=== PATIENT | male | born 1985 | race Caucasian/White ===

== ENCOUNTER 2023-10-02 16:15 | Outpatient (CLI) | payer OTHER, SELFPAY | END 2023-10-02 16:16 | disposition home or self-care (01) | LOC: AMB 10-03 17:57 | PROVIDERS: PCP Internal Medicine; Visit Provider Family Medicine | DX: S61.210A Laceration without foreign body of right index finger without damage to nail, initial encounter (principal); V49.3XXA Car occupant (driver) (passenger) injured in unspecified nontraffic accident, initial encounter; Y92.410 Unspecified street and highway as the place of occurrence of the external cause | CPT/HCPCS: A0425; A0429 ==

== ENCOUNTER 2023-10-02 16:36 | Emergency (ER) | payer OTHER, SELFPAY ==
[2023-10-02] VITALS (20 sets, daily range): BP systolic 110–140; BP diastolic 76–98; PULSE 56–83; RESP 16–18; TEMP 36.5; O2SAT 94–98; BMI 23.0
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
[2023-10-02] MEDS: TETANUS/DIPHTH/PERTUSSIS 0.5 ML SYRINGE IM (17:36)
== END 2023-10-02 18:26 | disposition home or self-care (01) ==
PROVIDERS: Emergency Provider Family Medicine; PCP Internal Medicine
DX: S60.410A Abrasion of right index finger, initial encounter (principal); V49.3XXA Car occupant (driver) (passenger) injured in unspecified nontraffic accident, initial encounter
CPT/HCPCS: 71045; 73110; 76604; 76705; 90471; 90715; 93308; 94761; 99284; 99291; G0390

== ENCOUNTER 2024-12-16 09:13 | Emergency (ER) | payer MEDICAID, SELFPAY ==
[2024-12-16 09:18] VITALS: BP 143/89; PULSE 84; RESP 20; TEMP 35.9; O2SAT 97; BMI 19.4
--- OUTSIDE RECORDS SUMMARY | 2024-12-16 09:18 | XMS_ITS | Clinical Summary ---
Author Organization [facility] Address [address] [place] [id number] Care Team Providers Care Overlock Elastic Attacher Name Role Phone Eyal Mills MD Primary Care Provider Allergies No known active allergies Medications OMEGA-3 FATTY ACIDS 1,000 MG CAP 0 10/28/2008 Active calcium-cholecal ciferol, vitamin D, 500 mg-200 units (OS-YAIMA 500 + D) 500 mg(1,250mg) -200 unit tablet Take 1 tablet by mouth 2 times daily with meals. 0 10/18/2009 Active multivitamin (MVI) tablet Take 1 tablet by mouth once daily. 0 10/18/2009 Active cyanocobalamin (VITAMIN B12) 100 mcg tablet Take 1 tablet by mouth once daily. 0 10/18/2009 Active Active Problems Problem Noted Date Diagnosed Date Bipolar I disorder, most rec ent episode (or current) manic, severe, without mention of psychotic behavior 09/29/2009 Marijuana abuse 09/29/2009 Bipolar affective 09/19/2009 ADD (attention deficit disorder with hyperactivi ty) 09/19/2009 Overview (07/06/2013): a system change updated this record. This will not affect patient care or billing. This comment can be deleted. Cannabis abuse, unspecified 09/19/2009 Hallucinogen abuse, unspecified 09/19/2009 Abrasions 09/19/2009 Bipolar I disorder, most rec ent episode (or current) manic, severe, specified as with psychotic behavior 09/19/2009 Family History Medical History Relation Name Comments Good Health Father Good Health Mother Relation Name Status Comments Father Mother Social History Tobacco Use Types Packs/Day Years Used Date Smoking Tobacco: Never Smokeless Tobacco: Never Tobacco Cessation:Counseling Given: Not Answered Alcohol Use Standard Drinks/Week Comments Yes 0 (1 standard drink = 0.6 oz pure alcohol) several beer occasionally, to point of getting drunk Sex and Gender Information Value Date Recorded Sex Assigned at Not on file Legal Sex Male 5:42 AM [employer] Gender Identity Not on file Sexual Orientation Not on file Obstetrics History Last Filed Vital Signs Vital Sign Reading Time Taken Comments Blood Pressure 121/71 12/21/2022 1:11 PM CDT Pulse 62 12/21/2022 1:11 PM CDT Temperature 37.1 C (98.7 F) 12/21/2022 1:11 PM CDT Respiratory Rate 14 12/21/2022 1:11 PM CDT Oxygen Saturation 97% 12/21/2022 1:11 PM CDT Inhaled Oxygen Concentration - - Weight 73.5 kg (162 lb) 12/21/2022 1:11 PM CDT Height 172.7 cm (5' 8) 10/11/2009 5:00 AM CDT Body Mass Index - - Plan of Treatment Health Maintenance Due Date Last Done Comments Tetanus booster 1997 Depression screening for age 12+ 1998 BMI (ht and wt on same day) for age 18+ 2004 Hepatitis C screening for ag e 18-79 2004 Hepatitis B series for 19+ ( 1 of 3 - 19+ 3-dose series) 2005 Lipids for age 35-44 2021 COVID-19 vaccine series ( season) 2023 Influenza Vaccine (#1) 2024 HIV for age 15-65 Completed 10/08/2009 Pneumococcal series for age 6-49 Aged Out No longer eligible based on patient's age to complete this topic Procedures Procedure Name Priority Date/Time Associated Diagnosis Comments ANTI HIV 1/2 Early AM 10/08/2009 6:00 AM CDT from Last 3 Months or Most Recently Relevant to Health Maintenance Results * ANTI HIV 1/2 (10/08/2009 6:00 AM CDT) ANTI HIV 1/2 Non-reacti ve [facility] Blood specimen (specimen) BLOOD SPECIMEN / Unknown 10/08/2009 6:00 AM CDT 10/07/2009 10:01 PM CDT Samuel Roland MD SEND OUTS Final Result [facility] [place]NAL ZIP [id number] [address] from Last 3 Months or Most Recently Relevant to Health Maintenance Insurance [facility] Advance Directives * Full Code (Latest Code Status on File) Date Activated Date Inactivated Comments 09/29/2009 12:54 AM 10/18/2009 4:10 PM * Full Code Date Activated Date Inactivated Comments 09/18/2009 2:58 PM 09/22/2009 10:32 PM Care Teams Overlock Elastic Attacher Relationship Specialty Start Date End Date Eyal Mills MD PCP - General 09/13/09
--- NOTE | 2024-12-16 09:30 | ED_ITS ---
HPI - Nausea/Vomiting/Diarrhea General Time Seen by Provider: 09:30 Date Seen: 12/16/24 Chief complaint: Nausea/Vomiting Stated complaint: can't keep anything down. Time Seen by Provider: 12/16/24 09:29 Source: patient and RN notes reviewed Mode of arrival: ambulatory Limitations: no limitations History of Present Illness HPI Narrative: This 38-year-old male is coming in accompanied by his mom with concern of nausea vomiting. He does have a history of cannabis dependence, alcohol dependence and pancreatitis. He admits that he drank half a bottle of Jagermeister Friday night, nausea vomiting started Friday night. He is not really having much for abdominal pain, no nausea or vomiting. He states he has been trying to get fluids down but just is not really able to. He starting to feel dizzy this morning, weak and fatigued. He just had a very small amount of urine production this morning, diminished urine output. He is abstain from cannabis use the last few days. He smokes marijuana. He does endorse some regurgitant symptoms or feel some burning. Difficult to say as he has been having vomiting. When his mom left the room, she did told nursing staff that he showers about 4 times a day, she does wonder if this is his cannabis use. He cannot really say that this feels like pancreatitis to him, his not having abdominal pain right now. Symptoms have been more nausea and vomiting. MD elicited complaint: nausea and vomiting Related Data Previous Rx's ?Medication ?Instructions ?Recorded ondansetron 4 mg disintegrating 4 mg PO Q6H PRN nausea and 12/16/24 tablet vomiting #30 tabs Allergies Allergy/AdvReac Type Severity Reaction Status Date / Time No Known Drug Allergies Allergy Verified 10/02/23 16:40 Review of Systems Status of ROS: Reports: 6 or more systems reviewed and unremarkable except as noted in History and below [facility] Medical History Back injury ?S39.92XA - Unspecified injury of lower back, initial encounter (ICD-10) History of cannabis dependence/abuse ?F12.21 - Cannabis dependence, in remission (ICD-10) History of pancreatitis (2013) ?Z87.19 - Personal history of other diseases of the digestive system (ICD-10) History of alcohol dependence ?F10.21 - Alcohol dependence, in remission (ICD-10) Mixed personality disorder ?F60.89 - Other specific personality disorders (ICD-10) Bipolar disorder ?F31.9 - Bipolar disorder, unspecified (ICD-10) ADHD (attention deficit hyperactivity disorder) ?F90.9 - Attention-deficit hyperactivity disorder, unspecified type (ICD-10) History of hepatitis C ?Z86.19 - Personal history of other infectious and parasitic diseases (ICD- 10) Family History Uncle Alcohol dependence Social History What is your current living situation?: I presently have a place to live Problems where you live: no known problems In the past 12 months, utilities in danger of being shut off: no In past 12 months, lack of transportation kept you from medical appts, meetings, work, or getting things needed for daily living: no In the past 12 mos, have been you worried that your food would run out before you had money to buy more?: never true In the past 12 mos, the food you bought just didn't last and you didn't have mo [place] to buy more?: never true Smoking Status: Never smoker How often do you have a drink containing alcohol: 4 or more times a week How many standard drinks containing alcohol do you have on a typical day: 3 or 4 How often do you have six or more drinks on one occasion: Weekly AUDIT-C Alcohol total score: 8 Non-prescribed substance use: former substance user and marijuana (any form) How often does anyone, including family, friends and others, physically hurt you : never How often does anyone, including family, friends and others, insult or talk down to you: rarely How often does anyone, including family, friends and others, threaten you with harm: never How often does anyone, including family, friends and others, scream or curse at you: never Health Related Social Needs: Other personal risk factors, not elsewhere classified (Z91.89) Exam Const: Vital Signs, click to edit/add: Vital Signs - 24 hr 12/16/24 09:18 12/16/24 11:32 Temperature 96.7 F L Pulse Rate [Pulse Oximeter] 84 61 Respiratory Rate 20 16 Blood Pressure [Ri ght Upper Arm] 143/89 H 123/85 Pulse Oximetry 97 97 Oxygen Delivery Me thod Room Air Room Air Brett is a very pleasant 38-year-old male hanging onto an emesis bag, he is lying in the bed in exam room 2. He is alert, interactive, no apparent distress, very pleasant. Sclera clear, conjugate gaze. Symmetrical facial f unction. Lips are not dry are cracked, speech is normal. Neck is slender, no jugular venous distension, no adenopathy or thyromegaly masses or nodules. Lungs are clear, good air entry, no wheezing or crackles, no tachypnea, no accessory muscle use. CV regular rate and rhythm, no murmur, normal S1-S2, no S3-S4. Abdomen is slender, normal bowel sounds, no distension, no organomegaly or masses, nontender, no rebound or guarding. Patient did ambulate into the ED of his own accord. Documenting provider has reviewed patient's vital signs: yes Course Course ED Course: Have reviewed the possibility of patient having cyclical vomiting due to the THC from marijuana use. He wonders if cutting down may make it safer. Reviewed with him that we will look at other etiologies, look at labs including lipase and full chemistries. He is nontender on his abdominal exam at this point, do not feel he needs imaging. Is possible with his alcohol use a could be something like gastritis or developing ulcer disease. Will give him a dose of IV Protonix, a L of fluids and 4 mg IV Zofran. Consider imaging if labs are abnormal/concerning for things such as pancreatitis. Reevaluation(s) Time of Reevaluation #1: 12:40 Reevaluation #1: Patient has completed 2 L of IVF and still no urge to urinate. Will order another L of LR. Time of Reevaluation #2: 14:04 Reevaluation #2: Patient finally urinated. He states he still felt dizzy on initially standing. He has had 3 L of fluid. His nausea is better. He is going to try drinking some clear liquids while we await the urinalysis. We did discuss that his labs show dehydration certainly. I do suspect cyclical vomiting syndrome. Liver enzymes likely elevated due to alcohol use, abdominal examination today is benign, do not think he needs any further workup. Vital Signs Vital signs: Initial Vital Signs Temperature 96.7 F L 12/16/24 09:18 Temperature Source Temporal Artery Scan 12/16/24 09:18 Pulse Rate 84 12/16/24 09:18 Respiratory Rate 20 12/16/24 09:18 Blood Pressure 143/89 H 12/16/24 09:18 Blood Pressure Mean 107 H 12/16/24 09:18 Blood Pressure Position Sitting 12/16/24 09:18 Pulse Oximetry 97 12/16/24 09:18 Oxygen Delivery Method Room Air 12/16/24 09:18 Vital Signs Temperature 96.7 F L 12/16/24 09:18 Pulse Rate 84 12/16/24 09:18 Respiratory Rate 20 12/16/24 09:18 Blood Pressure 143/89 H 12/16/24 09:18 Pulse Oximetry 97 12/16/24 09:18 Oxygen Delivery Method Room Air 12/16/24 09:18 Temperature 96.7 F L 12/16/24 09:18 Pulse Rate 61 12/16/24 11:32 Respiratory Rate 16 12/16/24 11:32 Blood Pressure 123/85 12/16/24 11:32 Pulse Oximetry 97 12/16/24 11:32 Oxygen Delivery Method Room Air 12/16/24 11:32 Medications Administered Medications: Discontinued Medications Generic Name Dose Route Start Last Admin Trade Name Freq PRN Reason Stop Dose Admin Sodium Chloride 1,000 mls @ 1,000 mls/hr 12/16/24 09:39 12/16/24 10:30 0.9 % Sodium Chloride 1000 Ml IV 12/16/24 10:38 Infused .Q1H BENNY Infusion Lactated Ringer's 1,000 mls @ 500 mls/hr 12/16/24 10:40 12/16/24 12:42 Lactated Ringers 1000 Ml IV 12/16/24 12:39 Infused .Q2H BENNY Infusion Lactated Ringer's 1,000 mls @ 1,000 mls/hr 12/16/24 12:39 12/16/24 13:35 Lactated Ringers 1000 Ml IV 12/16/24 13:38 Infused .Q1H ONE Infusion Olanzapine 5 mg 12/16/24 10:40 12/16/24 11:04 Olanzapine 5 Mg/Ml Inj IVP 12/16/24 10:41 Not Given ONCE ONE Ondansetron HCl 4 mg 12/16/24 09:38 12/16/24 10:06 Ondansetron 2 Mg/Ml Inj IVP 12/16/24 09:39 4 mg ONCE ONE Administration Pantoprazole Sodium 40 mg 12/16/24 09:38 12/16/24 10:06 Pantoprazole Sodium 40 Mg Inj IVP 12/16/24 09:39 40 mg ONCE ONE Administration MDM - Nausea/Vomiting/Diarrhea Lab Data Attestation: I reviewed the patient's lab results. Labs: Lab Results 12/16/24 12/16/24 Range/Units 09:55 13:55 WBC 11.11 H (4.50-11.00) K/uL RBC 6.18 H (4.30-5.90) m/uL Hgb 18.0 H (13.5-17.5) gm/dL Hct 51.1 (37.0-53.0) % MCV 83 (80-100) fL MCH 29 (26-34) pg MCHC 35 (32-36) gm/dL RDW Coeff of Antwan 12.8 (11.5-15.5) % Plt Count 308 (140-440) K/uL Neut % (Auto) 76.2 H (42.0-72.0) % Lymph % (Auto) 15.9 L (20-44) % Rowan % (Auto) 7.5 (0.0-11.0) % Eos % (Auto) 0.0 (0.0-7.0) % Baso % (Auto) 0.1 (0.0-3.0) % Neut # (Auto) 8.50 H (1.7-7.0) K/uL Lymph # (Auto) 1.80 (0.90-2.90) K/uL Rowan # (Auto) 0.80 (0.00-0.90) K/UL Eos # (Auto) 0.00 (0.00-0.50) K/uL Baso # (Auto) 0.00 (0.00-0.30) K/uL Abs Immat Gran (auto) 0.00 (0.00-0.30) K/uL Imm/Tot Granulo (auto) 0.3 % Sodium 136 (135-149) mmol/L Potassium 3.8 (3.6-5.1) mmol/L Chloride 92 L (96-114) mmol/L Carbon Dioxide 28 (20-32) mmol/L Anion Gap 16 H (7-15) mEq/L BUN 28 H (5-24) mg/dL Creatinine 1.1 (0.5-1.5) mg/dL Estimated Creat Clear 79.64 Estimated GFR 89 ml/min Glucose 138 H (60-115) mg/dL Lactate 1.6 (0.5-1.9) mmol/L Calcium 10.5 (8.4-10.6) mg/dL Magnesium 2.2 (1.5-2.6) mg/dL Total Bilirubin 1.6 H (0.1-1.5) mg/dL Direct Bilirubin 0.3 (0.0-0.5) mg/dL AST 47 H (12-35) U/L ALT 72 H (4-50) U/L Alkaline Phosphatase 61 (40-150) U/L C-Reactive Protein < 0.5 L (0.5-1.0) mg/dL Total Protein 9.5 H (6.0-8.3) g/dL Albumin 5.4 H (3.3-5.0) g/dL Lipase 293 (23-300) U/L Urine Color Dark yellow (Yellow) Urine Appearance Clear (Clear) Urine pH 6.0 (5.0-8.5) Ur Specific [place]on >= 1.030 (1.000-1.030) Urine Protein 1+ A (Negative) Urine Glucose (UA) Negative (Negative) Urine Ketones 2+ A (Negative) Urine Blood Trace-intact A (Negative) Urine Nitrite Negative (Negative) Urine Bilirubin 1+ A (Negative) Urine Urobilinogen 0.2 (0.2-1.0) Ur Leukocyte Esterase Negative (Negative) Urine RBC 0-2 (0-2) Urine WBC 2-5 (0-5) Ur Squamous Epith Cells Few (None-Few) Amorphous Sediment Moderate A (None) Urine Bacteria Few A (None) Hyaline Casts Few (None-Few) Urine Mucus Few A (None) Discharge Plan Discharge Clinical Impression: Acute dehydration Nausea & vomiting Qualifiers: Vomiting type: unspecified Qualified Code(s): R11.2 - Nausea with vomiting, unspecified Patient Disposition: Home, Self-Care Condition: Stable Instructions: Acute Nausea and Vomiting (ED), Cyclic Vomiting Syndrome (ED) Additional Instructions: Can use the Zofran for any recurrent nausea vomiting, this can help you keep fluids in so that you do not get dehydrated. It is very important that you push fluids to improve dehydration. Highly encourage you to significantly decrease marijuana use. It can take weeks, sometimes longer for the levels in your system to decrease to a point where the nausea and vomiting will go away. Do recommend that you follow-up in clinic and talk to your primary care provider about this further. In the meantime, if you feel your worsening, have further concerns or changes in your status, please seek re-evaluation. Activity Level: No Restrictions Prescriptions: New ondansetron 4 mg tablet,disintegrating 4 mg PO Q6H PRN (Reason: nausea and vomiting) Qty: 30 0RF Follow Up/Referrals: Eyal Mills MD [Primary Care Provider, Internal Medicine] Stand Alone Forms: Tosk Info Instructions
[2024-12-16] MEDS: ONDANSETRON 2 MG/ML inj 4 MG IVP (10:06)
[2024-12-16] MEDS: PANTOPRAZOLE SODIUM 40 MG INJ IVP (10:06)
[2024-12-16 10:07] LABS: Lactate* 1.6 mmol/L (0.5-1.9)
[2024-12-16 10:21] LABS: Hematocrit 51.1 % (37.0-53.0); Hemoglobin* 18.0 gm/dL (13.5-17.5); Immature Granulocytes Pct Auto 0.3 %; Mean Corpuscular HGB Conc 35 gm/dL (32-36); Mean Corpuscular Hemoglobin 29 pg (26-34); Mean Corpuscular Volume 83 fL (80-100); RDW Coefficient of Variation % 12.8 % (11.5-15.5); Red Blood Count 6.18 m/uL (4.30-5.90); White Blood Count* 11.11 K/uL (4.50-11.00)
[2024-12-16 10:25] LABS: Immature Granulocytes Abs Auto 0.00 K/uL (0.00-0.30); Lymphocytes Absolute Auto 1.80 K/uL (0.90-2.90); Slide Review Reflex No
[2024-12-16 10:35] LABS: Albumin* 5.4 g/dL (3.3-5.0); Chloride* 92 mmol/L (96-114); Sodium* 136 mmol/L (135-149)
[2024-12-16 10:36] LABS: Potassium* 3.8 mmol/L (3.6-5.1)
[2024-12-16 10:38] LABS: Alanine Aminotransferase* 72 U/L (4-50); Alkaline Phosphatase* 61 U/L (40-150); Anion Gap 16 mEq/L (7-15); Aspartate Amino Transferase* 47 U/L (12-35); Bilirubin Direct* 0.3 mg/dL (0.0-0.5); Bilirubin Total* 1.6 mg/dL (0.1-1.5); Blood Urea Nitrogen* 28 mg/dL (5-24); Carbon Dioxide* 28 mmol/L (20-32); Creatinine* 1.1 mg/dL (0.5-1.5); Est. Creatinine Clearance* 79.64; Estimated Glomerular Filt Rate 89 ml/min; Total Protein* 9.5 g/dL (6.0-8.3)
[2024-12-16 10:39] LABS: Calcium* 10.5 mg/dL (8.4-10.6); Glucose* 138 mg/dL (60-115)
[2024-12-16] MEDS: LACTATED RINGERS 1000 ML 1,000 ML 500 ML IV (11:04)
[2024-12-16 11:32] VITALS: BP 123/85; PULSE 61; RESP 16; O2SAT 97
[2024-12-16] MEDS: LACTATED RINGERS 1000 ML 1,000 ML IV (12:42)
[2024-12-16 14:01] LABS: Appearance Urine Clear (Clear)
== END 2024-12-16 14:58 | disposition home or self-care (01) ==
PROVIDERS: Emergency Provider Family Medicine; PCP Internal Medicine
DX: R11.2 Nausea with vomiting, unspecified (principal); E86.0 Dehydration
CPT/HCPCS: 36415; 80053; 81001; 81003; 82248; 83605; 83690; 83735; 85025; 86140; 87086; 96374; 96375; 99283; 99284; J2405; J2470; J7030; J7120

== ENCOUNTER 2024-12-19 06:20 | Emergency (ER) | payer MEDICAID, SELFPAY ==
[2024-12-19] VITALS (33 sets, daily range): BP systolic 101–154; BP diastolic 86–110; PULSE 47–83; RESP 16; TEMP 36.2; O2SAT 95–100; BMI 19.6
--- OUTSIDE RECORDS SUMMARY | 2024-12-19 06:22 | XMS_ITS | Clinical Summary ---
Author Organization [facility] Address [address] [place] [id number] Care Team Providers Care Server Developer Name Role Phone Eyal Mills MD Primary Care Provider [phone] Allergies No known active allergies Medications OMEGA-3 [...] on file Legal Sex Male 5:42 AM [employer] AND [employer] Gender Identity Not on file Sexual Orientation [...] for age 35-44 2021 COVID-19 vaccine series (2023- season) 2023 Influenza Vaccine (#1) 2024 RSV vaccine for adults or (1 - 1-dose 75+ series) 2061 HIV for age 15-65 Completed 10/08/2009 Pneumococcal [...] AM CDT) ANTI HIV 1/2 Non-reacti ve [facility] Blood specimen (specimen) BLOOD SPECIMEN / Unknown 10/08/2009 6:00 AM CDT 10/07/2009 10:01 PM CDT us Samuel Roland MD SEND OUTS Final Result [facility] INTERNAL ZIP [id number] [address] from Last 3 Months or Most Recently Relevant to Health Maintenance Insurance [facility] Advance Directives * Full Code (Latest Code Status on File) Date Activated Date Inactivated Comments 09/29/2009 12:54 AM 10/18/2009 4:10 PM * Full Code Date Activated Date Inactivated Comments 09/18/2009 2:58 PM 09/22/2009 10:32 PM Care Teams Server Developer Relationship Specialty Start Date End Date Eyal Mills MD PCP - General 09/13/09
--- NOTE | 2024-12-19 06:39 | ED.NAVMDI ---
HPI - Nausea/Vomiting/Diarrhea General Time Seen by Provider: 06:40 <Avery Cotton MD - Last Filed: 12/21/24 23:29> Date Seen: 12/19/24 <Avery Cotton MD - Last Filed: 12/21/24 23:29> Chief complaint: Nausea/Vomiting <Avery Cotton MD - Last Filed: 12/21/24 23:29> Stated complaint: nausea <Avery Cotton MD - Last Filed: 12/21/24 23:29> Time Seen by Provider: 12/19/24 06:39 <Avery Cotton MD - Last Filed: 12/21/24 23:29> Source: patient <Avery Cotton MD - Last Filed: 12/21/24 23:29> Mode of arrival: ambulatory <Avery Cotton MD - Last Filed: 12/21/24 23:29> Limitations: no limitations <Avery Cotton MD - Last Filed: 12/21/24 23:29> History of Present Illness HPI Narrative: 39-year-old male who presents today with nausea and vomiting. Patient was here 3 days ago with same symptoms, that time reassuring evaluation discharge. Returns today with continued nausea vomiting, poor tolerance of oral intake, and decreased urine output. Denies diarrhea, generalized abdominal pain which he says is from vomiting. No fevers or chills. Does use marijuana but has not for the last 4-5 days, similarly does drink alcohol but nothing for the last 4-5 days. <Avery Cotton MD - Last Filed: 12/21/24 23:29> Related Data Home medications: Previous Rx's ?Medication ?Instructions ?Recorded ondansetron 4 mg disintegrating 4 mg PO Q6H PRN nausea and 12/16/24 tablet vomiting #30 tabs metoclopramide HCl 10 mg tablet 10 mg PO Q6H PRN nausea and 12/19/24 (Reglan) vomiting #10 tabs <Avery Cotton MD - Last Filed: 12/21/24 23:29> Allergies/Adverse reactions: Allergies Allergy/AdvReac Type Severity Reaction Status Date / Time No Known Drug Allergies Allergy Verified 10/02/23 16:40 <Avery Cotton MD - Last Filed: 12/21/24 23:29> [facility] Medical History: Medical History Back injury ?S39.92XA - Unspecified injury of lower back, initial encounter (ICD-10) History of cannabis dependence/abuse ?F12.21 - Cannabis dependence, in remission (ICD-10) History of pancreatitis (2014) ?Z87.19 - Personal history of other diseases of the digestive system (ICD-10) History of alcohol dependence ?F10.21 - Alcohol dependence, in remission (ICD-10) Mixed personality disorder ?F60.89 - Other specific personality disorders (ICD-10) Bipolar disorder ?F31.9 - Bipolar disorder, unspecified (ICD-10) ADHD (attention deficit hyperactivity disorder) ?F90.9 - Attention-deficit hyperactivity disorder, unspecified type (ICD-10) History of hepatitis C ?Z86.19 - Personal history of other infectious and parasitic diseases (ICD-10) <Avery Cotton MD - Last Filed: 12/21/24 23:29> Family History: Family History Uncle Alcohol dependence <Avery Cotton MD - Last Filed: 12/21/24 23:29> Social History: Social History What is your current living situation?: I presently have a place to live Problems where you live: no known problems In the past 12 months, utilities in danger of being shut off: no In past 12 months, lack of transportation kept you from medical appts, meetings, work, or getting things needed for daily living: no In the past 12 mos, have been you worried that your food would run out before you had money to buy more?: never true In the past 12 mos, the food you bought just didn't last and you didn't have money to buy more?: never true Smoking Status: Never smoker How often do you have a drink containing alcohol: 4 or more times a week How many standard drinks containing alcohol do you have on a typical day: 3 or 4 How often do you have six or more drinks on one occasion: Weekly AUDIT-C Alcohol total score: 8 Non-prescribed substance use: former substance user and marijuana (any form) How often does anyone, including family, friends and others, physically hurt you: never How often does anyone, including family, friends and others, insult or talk down to you: rarely How often does anyone, including family, friends and others, threaten you with harm: never How often does anyone, including family, friends and others, scream or curse at you: never Health Related Social Needs: Other personal risk factors, not elsewhere classified (Z91.89) <Avery Cotton MD - Last Filed: 12/21/24 23:29> Exam Narrative: Exam Narrative: General: Well-developed and well-nourished, no acute distress Head: Atraumatic and normocephalic Eyes: Pupils are equal reactive, extraocular motions intact, conjunctiva clear ENT: External nose and ears are normal, posterior pharynx without erythema or exudate Neck: No midline cervical tenderness, full spontaneous range of motion the neck, trachea midline, no adenopathy Heart: Regular rate and rhythm no murmurs or thrills Lungs: Clear to auscultation bilaterally without wheezes or crackles Abdomen: Soft, nontender, nondistended with active bowel sounds Musculoskeletal: No tenderness, deformity, or edema Neurologic: Awake, alert, and oriented x3, no gross focal neurologic deficits, cranial nerves intact as tested Psych: Mood and affect are appropriate Skin: No rashes <Avery Cotton MD - Last Filed: 12/21/24 23:29> Const: Vital Signs, click to edit/add: Vital Signs - 24 hr 12/19/24 06:22 12/19/24 07:19 12/19/24 07:20 Temperature 97.1 F L Pulse Rate 49 L 54 L Pulse Rate [Left P ulse Oximeter] 82 Respiratory Rate 16 Blood Pressure 146/106 H Blood Pressure [Ri ght Upper Arm] 147/97 H Pulse Oximetry 96 100 100 Oxygen Delivery Me thod Room Air 12/19/24 07:30 12/19/24 07:32 12/19/24 07:45 Temperature Pulse Rate 55 L 50 L 50 L Pulse Rate [Left P ulse Oximeter] Respiratory Rate Blood Pressure 154/108 H Blood Pressure [Ri ght Upper Arm] Pulse Oximetry 99 97 97 Oxygen Delivery Me thod 12/19/24 07:47 12/19/24 08:00 12/19/24 08:02 Temperature Pulse Rate 52 L 53 L 53 L Pulse Rate [Left P ulse Oximeter] Respiratory Rate Blood Pressure 139/104 H 143/104 H Blood Pressure [Ri ght Upper Arm] Pulse Oximetry 97 96 96 Oxygen Delivery Me thod 12/19/24 08:03 12/19/24 08:15 12/19/24 08:17 Temperature Pulse Rate 59 L 47 L 51 L Pulse Rate [Left P ulse Oximeter] Respiratory Rate Blood Pressure 146/110 H Blood Pressure [Ri ght Upper Arm] Pulse Oximetry 95 100 99 Oxygen Delivery Me thod 12/19/24 08:30 12/19/24 08:32 12/19/24 08:45 Temperature Pulse Rate 52 L 56 L 50 L Pulse Rate [Left P ulse Oximeter] Respiratory Rate Blood Pressure 153/105 H Blood Pressure [Ri ght Upper Arm] Pulse Oximetry 100 98 96 Oxygen Delivery Me thod 12/19/24 08:47 12/19/24 09:00 12/19/24 09:03 Temperature Pulse Rate 55 L 83 60 Pulse Rate [Left P ulse Oximeter] Respiratory Rate Blood Pressure 153/105 H 151/100 H Blood Pressure [Ri ght Upper Arm] Pulse Oximetry 96 99 98 Oxygen Delivery Me thod 12/19/24 09:15 12/19/24 09:17 12/19/24 09:30 Temperature Pulse Rate 56 L 75 55 L Pulse Rate [Left P ulse Oximeter] Respiratory Rate Blood Pressure 134/86 Blood Pressure [Ri ght Upper Arm] Pulse Oximetry 99 98 98 Oxygen Delivery Me thod 12/19/24 09:32 12/19/24 09:45 12/19/24 09:47 Temperature Pulse Rate 57 L 56 L 56 L Pulse Rate [Left P ulse Oximeter] Respiratory Rate Blood Pressure 101/89 142/101 H Blood Pressure [Ri ght Upper Arm] Pulse Oximetry 98 96 98 Oxygen Delivery Me thod <Avery Cotton MD - Last Filed: 12/21/24 23:29> Vital Signs, click to edit/add: Vital Signs - 24 hr 12/19/24 06:22 12/19/24 07:19 12/19/24 07:20 Temperature 97.1 F L Pulse Rate 49 L 54 L Pulse Rate [Left P ulse Oximeter] 82 Respiratory Rate 16 Blood Pressure 146/106 H Blood Pressure [Ri ght Upper Arm] 147/97 H Pulse Oximetry 96 100 100 Oxygen Delivery Me od Room Air 12/19/24 07:30 12/19/24 07:32 12/19/24 07:45 Temperature Pulse Rate 55 L 50 L 50 L Pulse Rate [Left P ulse Oximeter] Respiratory Rate Blood Pressure 154/108 H Blood Pressure [Ri ght Upper Arm] Pulse Oximetry 99 97 97 Oxygen Delivery Me od 12/19/24 07:47 12/19/24 08:00 12/19/24 08:02 Temperature Pulse Rate 52 L 53 L 53 L Pulse Rate [Left P ulse Oximeter] Respiratory Rate Blood Pressure 139/104 H 143/104 H Blood Pressure [Ri ght Upper Arm] Pulse Oximetry 97 96 96 Oxygen Delivery Me od 12/19/24 08:03 12/19/24 08:15 12/19/24 08:17 Temperature Pulse Rate 59 L 47 L 51 L Pulse Rate [Left P ulse Oximeter] Respiratory Rate Blood Pressure 146/110 H Blood Pressure [Ri ght Upper Arm] Pulse Oximetry 95 100 99 Oxygen Delivery Me od 12/19/24 08:30 12/19/24 08:32 12/19/24 08:45 Temperature Pulse Rate 52 L 56 L 50 L Pulse Rate [Left P ulse Oximeter] Respiratory Rate Blood Pressure 153/105 H Blood Pressure [Ri ght Upper Arm] Pulse [facility]ximetry 100 98 [facility] 08[facility]47 12/19/24 09:00 12/19/24 09:03 Temperature Pulse Rate 55 L 83 60 Pulse Rate [Left P ulse Oximeter] Respiratory Rate Blood Pressure 153/105 H 151/100 H Blood Pressure [Ri ght Upper Arm] Pulse Oximetry 96 99 [facility] 09:15 12/19/24 09:17 12/19/24 09:30 Temperature Pulse Rate 56 L 75 55 L Pulse Rate [Left P ulse Oximeter] Respiratory Rate Blood Pressure 134/86 Blood Pressure [Ri ght Upper Arm] Pulse Oximetry 99 98 [facility] 09:32 12/19/24 09:45 12/19/24 09:47 Temperature Pulse Rate 57 L 56 L 56 L Pulse Rate [Left P ulse Oximeter] Respiratory Rate Blood Pressure 101/89 142/101 H Blood Pressure [Ri ght Upper Arm] Pulse Oximetry 98 96 98 Oxygen Delivery Me thod <Derek Lovett MD - Last Filed: 12/19/24 11:44> Course Course ED Course: Reviewed most recent emergency department note from December 16 when patient seen for the same complaint, at that time in the setting alcohol ingestion. Patient presents today with nausea vomiting comes in with a for several days. Also decreased urine output. No diarrhea, on exam no abdominal tenderness. Vitally stable. Labs and fluids are ordered along with Pepcid and Zofran. <Avery Cotton MD - Last Filed: 12/21/24 23:29> Reevaluation(s) Time of Reevaluation #1: 07:47 <Avery Cotton MD - Last Filed: 12/21/24 23:29> Reevaluation #1: Labs independently interpreted by me with normal white blood cell count, hemoglobin 18.2 which likely reflects some degree of hemoconcentration. Lactate 1.4. Remaining labs are pending. Anticipate sign out to oncoming provider. <Avery Cotton MD - Last Filed: 12/21/24 23:29> Reevaluation #2: Patient signed out to Dr. Lovett at a.m.-shift change. 39-year-old male with a history of marijuana use, alcohol use, presenting to the ER this morning with uncontrolled nausea and poor intake. Had been seen here in the ER 3 days ago for nausea. During that visit had mildly abnormal transaminases and bilirubin. Was able to discharge home but has not been able to keep fluids down for since yesterday. Decreased urine output. Not having abdominal pain, per report. Initial labs came back showing hemoglobin elevated, suggesting hemoconcentration and dehydration. His already received Zofran, Pepcid, fluids. Will order additional L of crystalloid. Awaiting the remainder of of labs. If LFTs are still elevated or worsening, consider right upper quadrant imaging Laboratory data WBC is normal at 9. Differential is normal. Hemoglobin is concentrated at 18. Platelet count is normal at 302. Sodium low 133, potassium low at 3.2. Chloride low at 90. Bicarb elevated at 31. Anion gap is normal. BUN elevated at 30. Creatinine is 1.2 (had been 1.13 days ago). Magnesium normal at 2.1. Transaminases are normal today with AST of 29, ALT 39. Bilirubin is abnormal at 2.4 (previously had been 1.6). Lipase is normal at 104 Recheck the patient at 8:20 a.m. He still feels nauseous. Repeat abdominal exam reveals mild epigastric tenderness. Almost no right upper quadrant or left upper quadrant tenderness. No lower tenderness. I do not feel any palpable mass or signs of incarcerated hernia. No distention or tympany. Patient is still nauseous but has not vomited. Able to tolerate sips. He is pretty forthright about his habits. He does smoke marijuana almost every night. It helps him sleep. He has been you doing that pretty regularly throughout the summer for the past several months. He also does drink alcohol but only on weekends. Typically 3-4 drinks per night. He does note that last Friday, the day before onset of his symptoms he did have a heavy binge of alcohol drinking because his uncle was visiting him. He does not have a history of multiple similar episodes like this. He did have history of pancreatitis 15 years ago or so related to heavy alcohol use when he was in college. No other long-term liver or stomach problems. Will obtain gallbladder ultrasound. Add repaired all for additional anti nausea. 10:20 a.m.- Right upper quadrant ultrasound results IMPRESSION: No sonographic findings to explain abnormal LFTs. Gallbladder sludge. No evidence of acute cholecystitis. Incidental findings as above. Recheck-no further vomiting. Still feels nauseous. Was able get down some potassium bicarbonate. Recheck-after 30 L fluid now feels more hydrated. Nausea much improved. He is stable to take keep down water. He feels the beginnings of hunger. He is comfortable discharging home. Sister at bedside and can be supportive for him today. At this point cause of nausea vomiting not clear. Could be cannabis hyperemesis syndrome. Also consider alcoholic gastritis. Less likely would be viral gastroenteritis. At this point he is not having any ongoing significant abdominal symptoms. No distension to raise concern for bowel obstruction. Gallbladder imaging is shows sludge but no obvious stones, cholecystitis, choledocholithiasis. LFTs are minimally abnormal but nonspecific. Would recommend follow-up with repeat lab test within 5-7 days to make sure that bilirubin normalizes, and to double check electrolytes and potassium. Lipase normal. No evidence for pancreatitis He has Zofran to use at home. Will add Reglan in case that works better for him. Precautions for return to the ER need for follow-up reviewed. Clinical impression: 1. Nausea and vomit 2. Abnormal bilirubin 3. Dehydration 4. Hypokalemia <Derek Lovett MD - Last Filed: 12/19/24 11:44> Vital Signs Vital signs: Initial Vital Signs Temperature 97.1 F L 12/19/24 06:22 Temperature Source Temporal Artery Scan 12/19/24 06:22 Pulse Rate 82 12/19/24 06:22 Pulse Rhythm Regular 12/19/24 06:22 Respiratory Rate 16 12/19/24 06:22 Blood Pressure 147/97 H 12/19/24 06:22 Blood Pressure Mean 113 H 12/19/24 06:22 Blood Pressure Position Sitting 12/19/24 06:22 Pulse Oximetry 96 12/19/24 06:22 Oxygen Delivery Method Room Air 12/19/24 06:22 Vital Signs Temperature 97.1 F L 12/19/24 06:22 Pulse Rate 82 12/19/24 06:22 Respiratory Rate 16 12/19/24 06:22 Blood Pressure 147/97 H 12/19/24 06:22 Pulse Oximetry 96 12/19/24 06:22 Oxygen Delivery Method Room Air 12/19/24 06:22 Temperature 97.1 F L 12/19/24 06:22 Pulse Rate 58 L 12/19/24 10:48 Respiratory Rate 16 12/19/24 06:22 Blood Pressure 136/94 H 12/19/24 10:48 Pulse Oximetry 96 12/19/24 10:48 Oxygen Delivery Method Room Air 12/19/24 06:22 <Avery Cotton MD - Last Filed: 12/21/24 23:29> Initial Vital Signs Temperature 97.1 F L 12/19/24 06:22 Temperature Source Temporal Artery Scan 12/19/24 06:22 Pulse Rate 82 12/19/24 06:22 Pulse Rhythm Regular 12/19/24 06:22 Respiratory Rate 16 12/19/24 06:22 Blood Pressure 147/97 H 12/19/24 06:22 Blood Pressure Mean 113 H 12/19/24 06:22 Blood Pressure Position Sitting 12/19/24 06:22 Pulse Oximetry 96 12/19/24 06:22 Oxygen Delivery Method Room Air 12/19/24 06:22 Vital Signs Temperature 97.1 F L 12/19/24 06:22 Pulse Rate 82 12/19/24 06:22 Respiratory Rate 16 12/19/24 06:22 Blood Pressure 147/97 H 12/19/24 06:22 Pulse Oximetry 96 12/19/24 06:22 Oxygen Delivery Method Room Air 12/19/24 06:22 Temperature 97.1 F L 12/19/24 06:22 Pulse Rate 58 L 12/19/24 10:48 Respiratory Rate 16 12/19/24 06:22 Blood Pressure 136/94 H 12/19/24 10:48 Pulse Oximetry 96 12/19/24 10:48 Oxygen Delivery Method Room Air 12/19/24 06:22 <Derek Lovett MD - Last Filed: 12/19/24 11:44> Medications Administered Medications: Discontinued Medications Generic Name Dose Route Start Last Admin Trade Name Freq PRN Reason Stop Dose Admin Droperidol 1.25 mg 12/19/24 08:41 12/19/24 08:51 Droperidol 2.5 Mg/Ml Inj IV 12/19/24 08:42 1.25 mg ONCE ONE Administration Famotidine 20 mg 12/19/24 06:49 12/19/24 07:01 Famotidine 10 Mg/Ml Inj IVP 12/19/24 06:50 20 mg ONCE ONE Administration Sodium Chloride 1,000 mls @ 1,000 mls/hr 12/19/24 07:00 12/19/24 08:07 0.9 % Sodium Chloride 1000 Ml IV 12/19/24 07:59 Infused .Q1H BENNY Infusion Lactated Ringer's 1,000 mls @ 1,000 mls/hr 12/19/24 07:58 12/19/24 08:56 Lactated Ringers 1000 Ml IV 12/19/24 08:57 Infused .Q1H ONE Infusion Sodium Chloride 1,000 mls @ 1,000 mls/hr 12/19/24 10:45 12/19/24 11:00 0.9 % Sodium Chloride 1000 Ml IV 12/19/24 11:44 1,000 mls/hr .Q1H BENNY Administration Ondansetron HCl 4 mg 12/19/24 06:49 12/19/24 07:01 Ondansetron 2 Mg/Ml Inj IVP 12/19/24 06:50 4 mg ONCE ONE Administration Potassium Bicarbonate 25 meq 12/19/24 08:41 12/19/24 08:50 Potassium Bicarb 25 Meq Effervescent Tab PO 12/19/24 08:42 25 meq ONCE ONE Administration <Avery Cotton MD - Last Filed: 12/21/24 23:29> Discontinued Medications Generic Name Dose Route Start Last Admin Trade Name Freq PRN Reason Stop Dose Admin Droperidol 1.25 mg 12/19/24 08:41 12/19/24 08:51 Droperidol 2.5 Mg/Ml Inj IV 12/19/24 08:42 1.25 mg ONCE ONE Administration Famotidine 20 mg 12/19/24 06:49 12/19/24 07:01 Famotidine 10 Mg/Ml Inj IVP 12/19/24 06:50 20 mg ONCE ONE Administration Sodium Chloride 1,000 mls @ 1,000 mls/hr 12/19/24 07:00 12/19/24 08:07 0.9 % Sodium Chloride 1000 Ml IV 12/19/24 07:59 Infused .Q1H BENNY Infusion Lactated Ringer's 1,000 mls @ 1,000 mls/hr 12/19/24 07:58 12/19/24 08:56 Lactated Ringers 1000 Ml IV 12/19/24 08:57 Infused .Q1H ONE Infusion Sodium Chloride 1,000 mls @ 1,000 mls/hr 12/19/24 10:45 12/19/24 11:00 0.9 % Sodium Chloride 1000 Ml IV 12/19/24 11:44 1,000 mls/hr .Q1H BENNY Administration Ondansetron HCl 4 mg 12/19/24 06:49 12/19/24 07:01 Ondansetron 2 Mg/Ml Inj IVP 12/19/24 06:50 4 mg ONCE ONE Administration Potassium Bicarbonate 25 meq 12/19/24 08:41 12/19/24 08:50 Potassium Bicarb 25 Meq Effervescent Tab PO 08/31/25 08:42 25 meq ONCE ONE Administration <Derek Lovett MD - Last Filed: 12/19/24 11:44> MDM - Nausea/Vomiting/Diarrhea Lab Data Labs: Lab Results 12/19/24 Range/Units 06:55 WBC 9.08 (4.50-11.00) K/uL RBC 6.30 H (4.30-5.90) m/uL Hgb 18.2 H (13.5-17.5) gm/dL Hct 52.0 (37.0-53.0) % MCV 83 (80-100) fL MCH 29 (26-34) pg MCHC 35 (32-36) gm/dL RDW Coeff of Antwan 11.9 (11.5-15.5) % Plt Count 302 (140-440) K/uL Neut % (Auto) 64.7 (42.0-72.0) % Lymph % (Auto) 26.1 (20-44) % [place] % (Auto) 8.0 (0.0-11.0) % Eos % (Auto) 0.7 (0.0-7.0) % Baso % (Auto) 0.3 (0.0-3.0) % Neut # (Auto) 5.87 (1.7-7.0) K/uL Lymph # (Auto) 2.37 (0.90-2.90) K/uL [place] # (Auto) 0.70 (0.00-0.90) K/UL Eos # (Auto) 0.06 (0.00-0.50) K/uL Baso # (Auto) 0.03 (0.00-0.30) K/uL Abs Immat Gran (auto) 0.02 (0.00-0.30) K/uL Imm/Tot Granulo (auto) 0.2 % Sodium 133 L (135-149) mmol/L Potassium 3.2 L (3.6-5.1) mmol/L Chloride 90 L (96-114) mmol/L Carbon Dioxide 31 (20-32) mmol/L Anion Gap 12 (7-15) mEq/L BUN 30 H (5-24) mg/dL Creatinine 1.2 (0.5-1.5) mg/dL Estimated Creat Clear 73.15 Estimated GFR 79 ml/min Glucose 130 H (60-115) mg/dL Lactate 1.4 (0.5-1.9) mmol/L Calcium 10.2 (8.4-10.6) mg/dL Magnesium 2.1 (1.5-2.6) mg/dL Total Bilirubin 2.4 H (0.1-1.5) mg/dL Direct Bilirubin 0.3 (0.0-0.5) mg/dL AST 29 (12-35) U/L ALT 39 (4-50) U/L Alkaline Phosphatase 57 (40-150) U/L Total Protein 8.7 H (6.0-8.3) g/dL Albumin 5.1 H (3.3-5.0) g/dL Lipase 104 (23-300) U/L <Avery Cotton MD - Last Filed: 12/21/24 23:29> Lab Results 12/19/24 Range/Units 06:55 WBC 9.08 (4.50-11.00) K/uL RBC 6.30 H (4.30-5.90) m/uL Hgb 18.2 H (13.5-17.5) gm/dL Hct 52.0 (37.0-53.0) % MCV 83 (80-100) fL MCH 29 (26-34) pg MCHC 35 (32-36) gm/dL RDW Coeff of Antwan 11.9 (11.5-15.5) % Plt Count 302 (140-440) K/uL Neut % (Auto) 64.7 (42.0-72.0) % Lymph % (Auto) 26.1 (20-44) % [place] % (Auto) 8.0 (0.0-11.0) % Eos % (Auto) 0.7 (0.0-7.0) % Baso % (Auto) 0.3 (0.0-3.0) % Neut # (Auto) 5.87 (1.7-7.0) K/uL Lymph # (Auto) 2.37 (0.90-2.90) K/uL [place] # (Auto) 0.70 (0.00-0.90) K/UL Eos # (Auto) 0.06 (0.00-0.50) K/uL Baso # (Auto) 0.03 (0.00-0.30) K/uL Abs Immat Gran (auto) 0.02 (0.00-0.30) K/uL Imm/Tot Granulo (auto) 0.2 % Sodium 133 L (135-149) mmol/L Potassium 3.2 L (3.6-5.1) mmol/L Chloride 90 L (96-114) mmol/L Carbon Dioxide 31 (20-32) mmol/L Anion Gap 12 (7-15) mEq/L BUN 30 H (5-24) mg/dL Creatinine 1.2 (0.5-1.5) mg/dL Estimated Creat Clear 73.15 Estimated GFR 79 ml/min Glucose 130 H (60-115) mg/dL Lactate 1.4 (0.5-1.9) mmol/L Calcium 10.2 (8.4-10.6) mg/dL Magnesium 2.1 (1.5-2.6) mg/dL Total Bilirubin 2.4 H (0.1-1.5) mg/dL Direct Bilirubin 0.3 (0.0-0.5) mg/dL AST 29 (12-35) U/L ALT 39 (4-50) U/L Alkaline Phosphatase 57 (40-150) U/L Total Protein 8.7 H (6.0-8.3) g/dL Albumin 5.1 H (3.3-5.0) g/dL Lipase 104 (23-300) U/L <Derek Lovett MD - Last Filed: 12/19/24 11:44> Discharge Plan Discharge Clinical Impression: Nausea & vomiting, Acute dehydration, Abnormal bilirubin test <Avery Cotton MD - Last Filed: 12/21/24 23:29> Patient Disposition: Home, Self-Care <Avery Cotton MD - Last Filed: 12/21/24 23:29> Condition: Stable <Avery Cotton MD - Last Filed: 12/21/24 23:29> Instructions: Dehydration (DC), Acute Nausea and Vomiting (DC) <Avery Cotton MD - Last Filed: 12/21/24 23:29> Additional Instructions: As we discussed, please return to the ER right away if you have uncontrolled vomiting, worsening weakness or dehydration, or if you have other new symptoms such as fever, worsening abdominal pain, or jaundice. We expect your symptoms should get better over the next 24-48 hours. If you are not completely improved within 24-48 hours, please recheck with your doctor or return to the ER. Even if you get better, please recheck with your regular doctor within 5-7 days to have repeat lab tests to double check her liver. <Avery Cotton MD - Last Filed: 12/21/24 23:29> Prescriptions: New metoclopramide HCl [Reglan] 10 mg tablet 10 mg PO Q6H PRN (Reason: nausea and vomiting) Qty: 10 0RF No Action ondansetron 4 mg tablet,disintegrating 4 mg PO Q6H PRN (Reason: nausea and vomiting) Qty: 30 0RF <Avery Cotton MD - Last Filed: 12/21/24 23:29> Follow Up/Referrals: Eyal Mills MD [Primary Care Provider, Internal Medicine] <Avery Cotton MD - Last Filed: 12/21/24 23:29> Stand Alone Forms: [facility] Info Instructions <Avery Cotton MD - Last Filed: 12/21/24 23:29>
[2024-12-19 07:01] LABS: Lactate* 1.4 mmol/L (0.5-1.9)
[2024-12-19] MEDS: ONDANSETRON 2 MG/ML inj 4 MG IVP (07:01)
[2024-12-19] MEDS: FAMOTIDINE 10 MG/ML inj 20 MG IVP (07:01)
[2024-12-19 07:04] LABS: Hematocrit 52.0 % (37.0-53.0); Hemoglobin* 18.2 gm/dL (13.5-17.5); Immature Granulocytes Abs Auto 0.02 K/uL (0.00-0.30); Immature Granulocytes Pct Auto 0.2 %; Lymphocytes Absolute Auto 2.37 K/uL (0.90-2.90); Mean Corpuscular HGB Conc 35 gm/dL (32-36); Mean Corpuscular Hemoglobin 29 pg (26-34); Mean Corpuscular Volume 83 fL (80-100); RDW Coefficient of Variation % 11.9 % (11.5-15.5); Red Blood Count 6.30 m/uL (4.30-5.90); White Blood Count* 9.08 K/uL (4.50-11.00)
[2024-12-19 07:05] LABS: Slide Review Reflex No
[2024-12-19 07:58] LABS: Albumin* 5.1 g/dL (3.3-5.0)
[2024-12-19 07:59] LABS: Chloride* 90 mmol/L (96-114); Potassium* 3.2 mmol/L (3.6-5.1); Sodium* 133 mmol/L (135-149)
[2024-12-19 08:01] LABS: Blood Urea Nitrogen* 30 mg/dL (5-24); Creatinine* 1.2 mg/dL (0.5-1.5); Est. Creatinine Clearance* 73.15; Estimated Glomerular Filt Rate 79 ml/min
[2024-12-19 08:02] LABS: Alanine Aminotransferase* 39 U/L (4-50); Alkaline Phosphatase* 57 U/L (40-150); Anion Gap 12 mEq/L (7-15); Aspartate Amino Transferase* 29 U/L (12-35); Bilirubin Direct* 0.3 mg/dL (0.0-0.5); Bilirubin Total* 2.4 mg/dL (0.1-1.5); Calcium* 10.2 mg/dL (8.4-10.6); Carbon Dioxide* 31 mmol/L (20-32); Glucose* 130 mg/dL (60-115); Total Protein* 8.7 g/dL (6.0-8.3)
[2024-12-19] MEDS: LACTATED RINGERS 1000 ML 1,000 ML IV (08:04)
--- NOTE | 2024-12-19 08:16 | CRLHL7_ITS ---
For Patients: As a result of the Century Cures Act, medical imaging exams and procedure reports are released immediately into your electronic medical record. You may view this report before your referring provider. If you have questions, please contact your health care provider. INDICATION: Nausea. Abnormal LFTs. COMPARISON: Remote abdominopelvic CT dated 10/13/2013 TECHNIQUE: Right upper quadrant grayscale and limited color Doppler ultrasound. FINDINGS: Liver: Homogeneous echotexture. Smooth contour. No suspicious focal lesion. No intrahepatic biliary ductal dilatation. Normal hepatopedal portal venous blood flow. Portal vein peak systolic velocity is 33 cm/second on spectral Doppler within the normal range. Portal vein caliber is 15 mm, at the upper limit of normal. Gallbladder: Nondistended. Gallbladder sludge. Sessile round echogenic nonshadowing mural nodules are noted consistent with small nonshadowing stones or gallbladder polyps, none larger than 4 mm. If gallbladder polyps they have a low risk morphology and SRU 202 guidelines recommend no routine imaging surveillance. Normal wall thickness. Negative sonographic Luz sign. CBD: Nondilated, measuring less than 6 mm. Pancreas: Normal where visualized. The pancreas is partially obscured and therefore incompletely evaluated. The technologist questions a focal region of decreased echogenicity within the pancreatic uncinate process as annotated on the static images (see SONYA 190, for example). On the submitted transverse cine clip this finding is contiguous and isoechoic to the liver representing extension of the caudate lobe into the margaux hepatis (cine clip 2, SONYA 280; frame 135, for example). The uncinate process of the pancreas is located below the level of the left renal vein, as demonstrated well on the prior abdominopelvic CT of 10/13/2013. Right Kidney: Normal echotexture. No hydronephrosis. No convincing sonographic evidence of nephrolithiasis. Midline Vasculature: Unremarkable where visualized. Peritoneal Cavity: No significant ascites. Additional Findings: None. IMPRESSION: No sonographic findings to explain abnormal LFTs. Gallbladder sludge. No evidence of acute cholecystitis. Incidental findings as above. Dictated by Koko Peterson MD @ 12/19/2024 10:14:34 AM (Electronically Signed)
[2024-12-19] MEDS: POTASSIUM BICARB 25 MEQ EFFERVESCENT TAB PO (08:50)
== END 2024-12-19 11:47 | disposition home or self-care (01) ==
PROVIDERS: Family Medicine; Emergency Provider Emergency Medicine; PCP Internal Medicine
DX: R11.2 Nausea with vomiting, unspecified (principal); E86.0 Dehydration; E80.7 Disorder of bilirubin metabolism, unspecified
CPT/HCPCS: 36415; 76705; 80048; 80076; 83605; 83690; 83735; 85025; 96374; 96375; 99284; 99285; A9270; J1308; J1790; J2405; J7030; J7120